=== PATIENT | female | born 1960 ===

== ENCOUNTER 2023-12-23 00:02 | Emergency (ER) | payer SELFPAY ==
[2023-12-23] MEDS ORDERED: NALOXONE HCL 2 MG/2 ML VIAL ONE (00:42)
[2023-12-23] MEDS ORDERED: NA CHLORIDE 0.9% 1,000 ML ONE (00:43)
[2023-12-23 00:52] LABS: Absolute Eosinophils 0.2 K/uL (0-0.5); Absolute Monocytes 0.5 K/uL (0.1-1.3); Absolute Neutrophil 3.9 K/uL (1.8-8.0); Basophils % 0.5 % (0-1.3); Eosinophils % 2.7 % (0-4.4); Hematocrit 35.6 % (36.0-45.0); Hemoglobin 11.9 g/dL (12.0-15.0); Lymphocytes % 30.6 % (15.3-44.8); MCH 29.6 pg (27.0-35.0); MCHC 33.5 g/dL (32.0-36.0); MCV 88.3 fL (80-100); MPV 9.4 fL (7.6-11.3); Monocytes % 7.1 % (3.3-12.3); Neutrophils % 59.1 % (41.7-73.7); Platelets 187 thou/uL (152-406); RBC Red Blood Cell Count 4.03 M/uL (3.86-4.86); Red Cell Distribution Width 13.7 % (12.1-15.2)
[2023-12-23 00:55] LABS: Specific Gravity < 1.005 (1.005-1.030); Sqamous Epithelial None Seen /HPF (None Seen); Urine Bacteria None Seen /HPF (<20); Urine Bilirubin NEGATIVE (Negative); Urine Blood Negative (Negative); Urine Clarity Clear (Clear); Urine Color Colorless (Yellow); Urine Culture Reflex Order NOT NEEDED; Urine Glucose NEGATIVE (Negative); Urine Ketones NEGATIVE (Negative); Urine Microscopic Reflex YN ORDER UMIC; Urine Nitrite NEGATIVE (Negative); Urine Protein NEGATIVE (Negative); Urine RBC <5 /HPF (None Seen); Urine Urobilinogen Normal (Normal); Urine WBC <5 /HPF (<5); Urine pH 6.5 (5.0-7.0)
[2023-12-23 01:01] LABS: Barbiturates NEGATIVE (NEGATIVE); Benzodiazepines NEGATIVE (NEGATIVE); Cocaine NEGATIVE (NEGATIVE); METHAMPHETAM NEGATIVE (NEGATIVE); Methadone NEGATIVE (NEGATIVE); Opiates NEGATIVE (NEGATIVE); Phencyclidine NEGATIVE (NEGATIVE); THC Cannibis NEGATIVE (NEGATIVE)
[2023-12-23 01:02] LABS: PT Prothrombin Time 10.6 SECONDS (9.4-12.5); PTT, Activated Partial Thromb 22.1 SECONDS (24.3-36.9); Protime INR 0.94
[2023-12-23 01:17] LABS: ALT/SGPT 22 U/L (13-56); AST/SGOT 17 U/L (15-37); Albumin 3.1 g/dL (3.4-5.0); Alkaline Phosphatase 72 U/L (45-117); Anion Gap 10.4 mEq/L (5.0-15.0); BUN Blood Urea Nitrogen 7 mg/dL (7-18); Bicarbonate 24 mEq/L (21-32); Bilirubin Total 0.2 mg/dL (0.2-1.0); Glomerular Filtration Rate 88 ml/min (=/>90); Glucose Level 147 mg/dL (74-106); Magnesium 2.2 mg/dL (1.6-2.4); Protein, Total 6.1 g/dL (6.4-8.2); Sodium Level 143 mEq/L (136-145)
[2023-12-23 01:18] LABS: Bilirubin Direct < 0.2 mg/dL (0-0.2)
[2023-12-23 01:20] LABS: Potassium 2.4 mEq/L (3.5-5.1)
[2023-12-23] MEDS ORDERED: POTASSIUM CL SA 10 MEQ TAB PO ONE (01:43)
[2023-12-23] MEDS ORDERED: KCL 20 MEQ/100 mL IVPB 100 ML IV ONE (01:43)
--- NOTE | 2023-12-23 02:30 | RAD REPORT ---
"EXAM: CT Chest, Abdomen and Pelvis Without Intravenous Contrast CLINICAL HISTORY: Fall, AMS. TECHNIQUE: Axial computed tomography images of the chest, abdomen and pelvis without intravenous contrast. Sag ittal and coronal reformatted images were created and reviewed. This CT exam was performed using one or more of the following dose reduction techniques: automated exposure control, adjustment of t he mA and/or kV according to patient size, and/or use of iterative reconstruction technique. COMPARISON: No relevant prior studies available. FINDINGS: CHEST: Lungs: Patchy bibasilar consolidative changes. No mass. Pleural space: Unremarkable. No significant effusion. No pneumothorax. Heart: The heart is mildly to moderately enlarged. No significant pericardial effusion. No sign ificant coronary artery calcifications. Mediastinum: Small hiatal hernia. ABDOMEN: Liver: Unremarkable. Gallbladder and bile ducts: There has been a cholecystectomy. No ductal dilation. Pancreas: Unremarkable. No ductal dilation. Spleen: Unremarkable. No splenomegaly. Adrenals: Unremarkable. No mass. Kidneys and ureters: Small left renal calculi. Mild fullness of the renal collecting systems bilate rally. Stomach and bowel: Unremarkable. No obstruction. No mucosal thickening. PELVIS: Appendix: Normal caliber appendix. No findings to suggest acute appendicitis. Bladder: The urinary bladder is distended. Small right lateral bladder diverticulum. No stones. Reproductive: There has been a hysterectomy. No adnexal cysts or masses are identified. CHEST, ABDOMEN and PELVIS: Intraperitoneal space: Unremarkable. No significant fluid collection. No free air. Bones/joints: Multilevel spondylosis. No acute fracture. No dislocation. Soft tissues: Unremarkable. Vasculature: Mild to moderate atherosclerotic disease. No thoracic or abdominal aortic aneurysm. Lymph nodes: Unremarkable. No enlarged lymph nodes. IMPRESSION: 1. Patchy bibasilar consolidative changes (atelectasis and/or infiltrate). 2. Allowing for unenhanced technique, no evidence for hollow or solid organ injury. 3. Other findings as above. Electronically signed by: Logan Fishman MD 12/23/2023 02:22 AM CDT Due to temporary technical issues with the PACS/[employer] An[employer] | Anywhere reporting system, reports are being rob d by the in-house radiologist without review as a courtesy to ensure prompt reporting the interpreting radiologist is fully responsible for the content of the report. Transcribed Date/Time: 12/23/2023 2:29 AM "
--- NOTE | 2023-12-23 02:55 | ER ---
Nurse's Notes [facility] Name: Anita Beck Age: 63 yrs Sex: Female : 1960 Arrival Date: 12/23/2023 Time: 00:02 Bed 25 Private MD: Diagnosis: Alcohol use, unspecified with intoxication;Hypokalemia Presentation: 12/21 23:48 Chief complaint: EMS states: patient was at [facility] with friends and had 8-9 al5 alcoholic drinks. friends that were with her state that she fell, with ems patient responsive to verbal/painful stimuli. Coronavirus screen: At this time, the client does not indicate any symptoms associated with coronavirus-19. Care prior to arrival: Cervical collar in place. Medication(s) given: Normal saline infusion, 500 mL, IV initiated. 20 GA, in the right hand. Ebola Screen: No symptoms or risks identified at this time. Mechanism of Injury: Fall. Trauma event details: Injury occurred in the [facility], Injury occurred: in a recreational area. Injury occurred: December 23, 2023. Initial Sepsis Screen: Does the patient meet any 2 criteria? No. Patient's initial sepsis screen is negative. Does the patient have a suspected source of infection? No. Patient's initial sepsis screen is negative. Risk Assessment: Do you want to hurt yourself or someone else? Unable to obtain. Onset of symptoms was December 23, 2023. 23:48 Acuity: KARO 3 al5 23:48 Method Of Arrival: EMS: [facility] al5 12/22 01:00 Risk Assessment: Do you want to hurt yourself or someone else? Patient reports no al5 desire to harm self or others. Triage Assessment: 00:29 General: see trauma assessment. al5 Trauma Activation: Physician: ED Physician; Name: ; Notified At: ; Arrived At: Physician: General Surgeon; Name: ; Notified At: ; Arrived At: Physician: Radiology; Name: ; Notified At: ; Arrived At: Physician: Respiratory; Name: ; Notified At: ; Arrived At: Physician: Lab; Name: ; Notified At: ; Arrived At: 12/21 23:48 no trauma activation al5 Historical: - Allergies: 12/22 00:51 No Known Allergies; al5 - PMHx: 00:51 None; al5 - PSHx: 00:51 None; al5 - Immunization history:: Adult Immunizations up to date. - Immunization history: Last tetanus immunization: unknown. - Infectious Disease History:: Denies. - Social history:: Smoking status: unknown. Screenin:28 Abuse screen: Denies threats or abuse. Denies injuries from another. Nutritional al5 screening: No deficits noted. Tuberculosis screening: No symptoms or risk factors identified. 00:29 [facility] ED Fall Risk Assessment (Adult) History of falling in the last 3 months, al5 including since admission Yes- single mechanical fall (1 pt) Confusion or Disorientation Yes (5 pts) Intoxicated or Sedated Yes (3 pts) Impaired Gait Yes (1 pt) Mobility Assist Device Used No (0 pt) Altered Elimination No (0 pt) Score/Fall Risk Level 3 or more points = High Risk Maintained a safe environment, Hourly rounding (assess needs \T\ fall precautionary measures) done, Apply high fall risk patient identification: yellow non skid footwear/ fall signage. Primary Survey: 12/21 23:48 NO uncontrolled hemorrhage observed. A: Airway: patent, A: No supplemental oxygen in al5 use on arrival. Breathing/Chest: Respiratory effort: spontaneous, Respiratory pattern: regular. Breathing/Chest: Chest inspection: symmetrical rise and fall of the chest. Circulation: Pulses: palpable right radial artery, right dorsalis pedis artery, left radial artery and left dorsalis pedis artery. Skin color: pink, Skin temperature: warm, dry. Disability Pupils are equal, round, reactive to light and accommodation. Client responds to verbal stimuli. Client reponds to painful stimuli. Exposure/Environment: All clothing and personal items were removed. There is no evidence of uncontrolled external bleeding. No obvious injuries are noted at this time. A warming method has been applied: A warm blanket has been provided to the patient. 12/22 00:45 Reassessment Alertness and Airway: Airway Patent Breathing: Spontaneous respiratory al5 effort, equal unlabored respirations, breath sounds clear bilaterally, regular pattern with symmetrical chest rise and fall. Respiratory effort Spontaneous Respiratory pattern Regular Circulation: Color [place] Temperature Warm Dry Disability: Pupils Pupils are equal, round, reactive to light and accomodation. Verbal stimuli. Secondary Survey: 00:24 HEENT: No deficits noted. Head No injury/deformity Face No injury/deformity Eyes: No al5 injury or deformity noted. Gastrointestinal: No deficits noted. Abdomen is soft, flat, non-distended. : No deficits noted. Musculoskeletal: No deficits noted. patient placed in c-collar by ems. Assessment: 12/21 23:48 General: Appears in no apparent distress. well groomed, Behavior is unresponsive. al5 Smells of alcohol. General: patient unable to stay awake to receive any kind of patient history. Pain: Unable to use pain scale. Patient is disoriented. Neuro: Level of Consciousness is unresponsive. EENT: No deficits noted. Cardiovascular: Capillary refill < 3 seconds Patient's skin is warm and dry. Respiratory: Airway is patent Respiratory effort is even, unlabored, Respiratory pattern is regular, symmetrical. GI: No deficits noted. Abdomen is flat, non-distended. : No deficits noted. Derm: Skin is intact, Skin is pink, warm \T\ dry. normal. Musculoskeletal: No deficits noted. 12/22 00:30 Reassessment: 261 dollars and patient ID found in patient R side back pocket, money al5 secured with security. 00:49 Reassessment: Patient states symptoms have improved. patient responsive to verbal al5 stimuli, able to answer questions. patient [id number].. 01:00 Reassessment: Patient appears in no apparent distress at this time. Patient and/or al5 family updated on plan of care and expected duration. Pain level reassessed. Patient is alert, oriented x 3, equal unlabored respirations, skin warm/dry/pink. Patient states feeling better. Patient states symptoms have improved. 01:58 Reassessment: Patient appears in no apparent distress at this time. No changes from al5 previously documented assessment. Patient and/or family updated on plan of care and expected duration. Pain level reassessed. Patient is alert, oriented x 3, equal unlabored respirations, skin warm/dry/pink. 02:54 Reassessment: Patient appears in no apparent distress at this time. No changes from al5 previously documented assessment. Patient and/or family updated on plan of care and expected duration. Pain level reassessed. Patient is alert, oriented x 3, equal unlabored respirations, skin warm/dry/pink. 03:18 Reassessment: Patient appears in no apparent distress at this time. No changes from al5 previously documented assessment. Patient and/or family updated on plan of care and expected duration. Pain level reassessed. Patient is alert, oriented x 3, equal unlabored respirations, skin warm/dry/pink. 03:18 Reassessment: discharge pending safe ride home. patient without phone, does not know al5 anyones phone numbers and patient has never been a patient at this facility therefore unable to look up any patient emergency contacts. charge nurse is aware. 03:20 Reassessment: DISCHARGE PENDING DUE TO TRANSPORTATION. UNABLE TO GET ANY PHONE ha1 NUMBER.TAXI UNAVAILABLE AT THIS TIME. 04:05 Reassessment: Patient and/or family updated on plan of care and expected duration. Pain ha1 level reassessed. Patient is alert, oriented x 3, equal unlabored respirations, skin warm/dry/pink. TAXI ARRANGEMENT MADE. TAXI WILL BE HERE IN 20 MINUTES. 04:05 General: Appears comfortable, Behavior is calm, cooperative. Neuro: Level of ha1 Consciousness is awake, alert, obeys commands, Oriented to person, place, time, situation. Cardiovascular: Capillary refill < 3 seconds Patient's skin is warm and dry. Vital Signs: 12/21 23:48 BP 103 / 65; Pulse 71; Resp 18; Temp 97.6; Pulse Ox 91% on R/A; Weight 66.22 kg; Height al5 5 ft. 3 in. ; 12/22 00:15 BP 111 / 65; Pulse 72; Resp 14; Pulse Ox 96% on 2 lpm NC; al5 00:30 BP 107 / 65; Pulse 67; Resp 15; Pulse Ox 96% on 2 lpm NC; al5 00:45 BP 109 / 67; Pulse 67; Resp 18; Pulse Ox 94% on R/A; al5 01:45 BP 119 / 73; Pulse 84; Resp 18; Pulse Ox 97% on R/A; al5 02:00 BP 117 / 68; Pulse 67; Resp 18; Pulse Ox 95% on R/A; al5 02:15 BP 109 / 65; Pulse 72; Resp 18; Pulse Ox 94% on R/A; al5 02:30 BP 100 / 63; Pulse 72; Resp 18; Pulse Ox 95% on R/A; al5 03:18 BP 105 / 63; Pulse 78; Resp 16; Pulse Ox 95% on R/A; al5 04:17 BP 107 / 67; Pulse 71; Resp 17 S; Pulse Ox 98% on R/A; ha1 12/21 23:48 Body Mass Index 25.86 (66.22 kg, 160.02 cm) al5 Tiaar Coma Score: 12/21 23:48 Eye Response: to voice(3). Motor Response: withdraws from pain(4). Verbal Response: al5 none(1). Total: 8. 12/22 00:50 Eye Response: to voice(3). Motor Response: obeys commands(6). Verbal Response: al5 oriented(5). Total: 14. 12/21 23:48 patient had etoh prior to arrival al5 Trauma Score (Adult): 23:48 Eye Response: to voice(0); Verbal Response: none(0); Motor Response: withdraws from al5 pain(1); Systolic BP: > 89 mm Hg(4); Respiratory Rate: 10 to 29 per min(4); Tiara Score: 8; Trauma Score: 9; patient had etoh prior to arrival 12/22 00:50 Eye Response: to voice(0); Verbal Response: oriented(1); Motor Response: obeys al5 commands(2); Systolic BP: > 89 mm Hg(4); Respiratory Rate: 10 to 29 per min(4); [place] Score: 14; Trauma Score: 11 ED Course: 12/21 23:48 Arm band placed on right wrist. Patient placed in the treatment room, on a stretcher. al5 12/22 00:11 Patient arrived in ED. ty 00:13 Niurka Cosme, SONALI is Primary Nurse. al5 00:15 Yogi Faulkner PA is PHCP. ec2 00:16 Damian Hurd MD is Attending Physician. ec2 00:17 Triage completed. al5 00:28 Patient has correct armband on for positive identification. Placed in gown. Bed in low al5 position. Call light in reach. Side rails up X2. 00:28 No provider procedures requiring assistance completed. Maintain EMS IV. Dressing al5 intact. Good blood return noted. Site clean \T\ dry. Gauge \T\ site: 20G R hand. Flushed with 10 mL NS. Patient maintains SpO2 saturation greater than 95% on room air. 00:31 Thermoregulation: warm blanket given to patient. al5 00:39 Acetaminophen Sent. al5 00:39 ETOH Level Sent. al5 00:39 Ptt, Activated Sent. al5 00:39 Salicylate Sent. al5 00:39 Urine Drug Screen Sent. al5 00:39 Urinalysis w/ reflexes Sent. al5 00:39 Basic Metabolic Panel Sent. al5 00:39 CBC with Diff Sent. al5 00:39 LFT's Sent. al5 00:39 Magnesium Sent. al5 00:39 PT-INR Sent. al5 00:39 Troponin HS Sent. al5 00:49 EKG done, by ED staff, reviewed by Yogi PAULA. sa1 00:54 Provided Education on: plan of care. al5 01:08 XRAY Chest (1 view) In Process Unspecified. EDMS 01:19 Head C Spine Mpr Wo Con In Process Unspecified. EDMS 01:19 Chest Abd Pelvis Wo Con In Process Unspecified. EDMS 01:47 Notified ED physician of a critical lab result(s). potassium 2.4. al5 03:20 IV discontinued, intact, bleeding controlled, No redness/swelling at site. Pressure al5 dressing applied. Administered Medications: 00:52 Drug: Naloxone IVP 1 mg IVP once Route: IVP; Site: right hand; al5 02:07 Follow up: Response: No adverse reaction al5 00:52 Drug: NS 0.9% IV 1000 ml IV at 500 ml/hr Per protocol Route: IV; Rate: 500 ml/hr; Site: al5 right hand; 03:19 Follow up: Response: No adverse reaction; IV Status: Completed infusion; IV Intake: al5 1000ml 01:57 Drug: Potassium Chloride IV 20 mEq IV at calculated rate once; administer over 1-2 al5 hours Route: IV; Rate: calculated rate; Site: right hand; 03:18 Follow up: Response: No adverse reaction; IV Status: Order to discontinue infusion al5 01:57 Drug: Potassium Chloride PO 40 mEq PO once Route: PO; al5 02:07 Follow up: Response: No adverse reaction al5 Medication: 00:29 VIS not applicable for this client. al5 Intake: 03:19 IV: 1000ml; Total: 1000ml. al5 00:25 n/a al5 Outcome: 02:54 Discharge ordered by . ec2 03:19 Patient's length of stay in the Emergency Department was greater than 2 hours. patient al5 receiving potassium IVPatient's length of stay extended due to 03:20 Condition: good al5 03:20 Discharge instructions given to patient, Instructed on discharge instructions, follow up and referral plans. Demonstrated understanding of instructions, follow-up care, 04:16 Discharged to home ambulatory, ha1 04:16 Condition: stable 04:16 Discharge instructions given to patient, Instructed on discharge instructions, follow up and referral plans. Demonstrated understanding of instructions, follow-up care, 04:17 Patient left the ED. ha1 Signatures: Dispatcher [employer] EDMS Selin Monteiro RN RN ha1 Damian Hurd MD MD ec2 Diogo Castañeda Amanda, RN RN al5 Sultan Go sa1 Corrections: (The following items were deleted from the chart) 00:52 00:48 NS 0.9% IV 1000 ml IV at 500 ml/hr in left hand al5 al5 00:54 00:25 GCS: 8, patient had etoh prior to arrival al5 al5 00:54 00:25 [place] Score=8, Trauma Score=9, patient had etoh prior to arrival al5 al5 00:54 00:25 BP 103 / 65; Pulse 71bpm; Resp 18bpm; Pulse Ox 91% RA; Temp 97.6F; 66.22 kg; al5 Height 5 ft. 3 in.; BMI: 25.8; al5 00:54 00:31 Arm band placed on right wrist. Patient placed in the treatment room, on a al5 stretcher, al5 : 00:17 General: Appears in no apparent distress. well groomed, Behavior is unresponsive. al5 Smells of alcohol, al5 :56 00:17 Pain: Unable to use pain scale. Patient is disoriented. al5 al5 :56 00:17 Neuro: Level of Consciousness is unresponsive, al5 al5 : 00:17 EENT: No deficits noted. al5 al5 00:56 00:17 Cardiovascular: Capillary refill < 3 seconds Patient's skin is warm and dry. al5 al5 00:56 00:17 Respiratory: Airway is patent Respiratory effort is even, unlabored, Respiratory al5 pattern is regular, symmetrical, al5 :56 00:17 : No deficits noted. al5 al5 :56 00:17 GI: No deficits noted. Abdomen is flat, non-distended, al5 al5 56 00:17 Derm: Skin is intact, Skin is pink, warm \T\ dry. normal, al5 al5 :56 00:17 Musculoskeletal: No deficits noted. al5 al5 :56 00:19 General: patient unable to stay awake to receive any kind of patient history. al5 al5 00:14 Chief complaint: EMS states: patient was at [facility] with friends and had 8-9 al5 alcoholic drinks. friends that were with her state that she fell, with ems patient responsive to verbal/painful stimuli. al5 00:14 Care prior to arrival: Cervical collar in place. Medication(s) given: Normal al5 saline infusion, 500 mL, IV initiated. 20 GA, in the right hand, al5 00:14 Mechanism of Injury: Fall al5 5 00:14 Trauma event details: Injury occurred in the [facility], Injury occurred: al5 in a recreational area. Injury occurred: December 23, 2023 al5 00:14 Acuity: KARO 2 al5 5 00:14 Method Of Arrival: EMS: [facility] al5 00:14 no trauma activation al5 00:30 Risk Assessment: Do you want to hurt yourself or someone else? Unable to obtain al5 al5 00:30 Coronavirus screen: At this time, the client does not indicate any symptoms al5 associated with coronavirus-19. al5 00:30 Ebola Screen: No symptoms or risks identified at this time. al5 5 00:30 Initial Sepsis Screen: Does the patient meet any 2 criteria? No. Patient's al5 initial sepsis screen is negative. Does the patient have a suspected source of infection? No. Patient's initial sepsis screen is negative. al5 00:30 Onset of symptoms was December 23, 2023 al5 al5 00:59 00:20 NO uncontrolled hemorrhage observed al5 al5 59 00:20 A: Airway: patent, al5 al5 00:59 00:20 A: No supplemental oxygen in use on arrival. al5 al5 00:59 00:20 Breathing/Chest: Respiratory effort: spontaneous, Respiratory pattern: regular, al5 al5 :59 00:20 Breathing/Chest: Chest inspection: symmetrical rise and fall of the chest, al5 al5 :59 00:20 Circulation: Pulses: palpable right radial artery, right dorsalis pedis artery, al5 left radial artery and left dorsalis pedis artery. Skin color: pink, Skin temperature: warm, dry, al5 00: 00:20 Disability Pupils are equal, round, reactive to light and accommodation. Client al5 responds to verbal stimuli. Client reponds to painful stimuli. al5 : 00:20 Exposure/Environment: All clothing and personal items were removed. There is no al5 evidence of uncontrolled external bleeding. No obvious injuries are noted at this time. A warming method has been applied: A warm blanket has been provided to the patient. al5
--- NOTE | 2023-12-23 02:56 | EDPHYS ---
Physician Documentation [facility] Name: Anita Beck Age: 63 yrs Sex: Female : 1960 Arrival Date: 12/23/2023 Time: 00:02 Bed 25 Private MD: ED Physician Damian Hurd HPI: 12/22 00:17 This 63 yrs old Female presents to ER via Unassigned with complaints of Fall Injury, cp ETOH Abuse. 00:17 The patient presents with decreased responsiveness. Onset: The symptoms/episode cp began/occurred today. Possible causes: reported fall after heavy drinking at local restaurant. Current symptoms: In the emergency department the patient's symptoms are unchanged from the initial presentation, despite EMS interventions. Historical: - Allergies: 00:51 No Known Allergies; al5 - PMHx: 00:51 None; al5 - PSHx: 00:51 None; al5 - Immunization history:: Adult Immunizations up to date. - Immunization history: Last tetanus immunization: unknown. - Infectious Disease History:: Denies. - Social history:: Smoking status: unknown. ROS: 00:20 Neuro: Positive for altered mental status, cp 02:55 Constitutional: as per hpi ec2 Exam: 00:25 Constitutional: The patient appears in no acute distress, non-diaphoretic, non-toxic, cp well developed, well nourished, 00:25 Head/Face: Normocephalic, atraumatic. cp 00:25 Eyes: Pupils: equal, round, and reactive to light and accomodation, Conjunctiva: normal, no exudate, no injection, 00:25 ENT: External ear(s): are unremarkable, Nose: is normal, Mouth: Lips: moist, Oral mucosa: moist, 00:25 Neck: C-spine: C-collar placed [employer], 00:25 Chest/axilla: Inspection: normal, Palpation: is normal, no crepitus, no tenderness, 00:25 Cardiovascular: Rate: normal, Rhythm: regular, 00:25 Respiratory: the patient does not display signs of respiratory distress, Respirations: normal, no use of accessory muscles, no retractions, labored breathing, is not present, Breath sounds: are clear throughout, no decreased breath sounds, no stridor, no wheezing, 00:25 Abdomen/GI: Inspection: abdomen appears normal, Palpation: abdomen is soft and non-tender, in all quadrants, 00:25 Musculoskeletal/extremity: Exam is negative for deformity, obvious injury. 00:25 Neuro: Mentation: responsive to pain, 00:47 ECG was reviewed by the Attending Physician. cp Vital Signs: 12/21 23:48 BP 103 / 65; Pulse 71; Resp 18; Temp 97.6; Pulse Ox 91% on R/A; Weight 66.22 kg; Height al5 5 ft. 3 in. ; 12/22 00:15 BP 111 / 65; Pulse 72; Resp 14; Pulse Ox 96% on 2 lpm NC; al5 00:30 BP 107 / 65; Pulse 67; Resp 15; Pulse Ox 96% on 2 lpm NC; al5 00:45 BP 109 / 67; Pulse 67; Resp 18; Pulse Ox 94% on R/A; al5 01:45 BP 119 / 73; Pulse 84; Resp 18; Pulse Ox 97% on R/A; al5 02:00 BP 117 / 68; Pulse 67; Resp 18; Pulse Ox 95% on R/A; al5 02:15 BP 109 / 65; Pulse 72; Resp 18; Pulse Ox 94% on R/A; al5 02:30 BP 100 / 63; Pulse 72; Resp 18; Pulse Ox 95% on R/A; al5 03:18 BP 105 / 63; Pulse 78; Resp 16; Pulse Ox 95% on R/A; al5 04:17 BP 107 / 67; Pulse 71; Resp 17 S; Pulse Ox 98% on R/A; ha1 12/21 23:48 Body Mass Index 25.86 (66.22 kg, 160.02 cm) al5 Tiara Coma Score: 12/21 23:48 Eye Response: to voice(3). Motor Response: withdraws from pain(4). Verbal Response: al5 none(1). Total: 8. 12/22 00:50 Eye Response: to voice(3). Motor Response: obeys commands(6). Verbal Response: al5 oriented(5). Total: 14. 12/21 23:48 patient had etoh prior to arrival al5 Trauma Score (Adult): 23:48 Eye Response: to voice(0); Verbal Response: none(0); Motor Response: withdraws from al5 pain(1); Systolic BP: > 89 mm Hg(4); Respiratory Rate: 10 to 29 per min(4); Tiara Score: 8; Trauma Score: 9; patient had etoh prior to arrival 12/22 00:50 Eye Response: to voice(0); Verbal Response: oriented(1); Motor Response: obeys al5 commands(2); Systolic BP: > 89 mm Hg(4); Respiratory Rate: 10 to 29 per min(4); Tiara Score: 14; Trauma Score: 11 MDM: 00:17 Patient medically screened. cp 01:19 Data reviewed: vital signs. ED course: Patient signed out to me with pending CT ec2 imaging. Patient will alcohol intoxication, altered. Patient pending clinical sobering and CT imaging.. 02:54 ED course: CT imaging with no acute traumatic process. On reassessment patient is awake ec2 and alert and ambulatory. Will discharge home. Return precautions given. 12/22 00:20 Order name: Basic Metabolic Panel; Complete Time: : cp 12/22 00:20 Order name: CBC with Diff; Complete Time: : cp 12/22 01:13 Interpretation: Normal except: HGB 11.9; HCT 35.6. cp 12/22 00:20 Order name: LFT's; Complete Time: : cp 12/22 00:20 Order name: Magnesium; Complete Time: : cp 12/22 00:20 Order name: PT-INR; Complete Time: : cp 12/22 00:20 Order name: Troponin HS; Complete Time: : cp 12/22 00:20 Order name: Acetaminophen; Complete Time: : cp 12/22 00:20 Order name: ETOH Level; Complete Time: 01:18 cp 12/22 00:20 Order name: Ptt, Activated; Complete Time: : cp 12/22 00:20 Order name: Salicylate; Complete Time: : cp 12/22 00:20 Order name: Urinalysis w/ reflexes; Complete Time: : cp 12/22 00:20 Order name: Urine Drug Screen; Complete Time: 01:13 cp 12/22 00:20 Order name: XRAY Chest (1 view) cp 12/22 00:45 Order name: Head C Spine Mpr Wo Con EDMS 12/22 00:45 Order name: Chest Abd Pelvis Wo Con EDMS 12/22 00:20 Order name: EKG; Complete Time: 00:20 cp 12/22 00:20 Order name: Cardiac monitoring; Complete Time: 00:32 cp 12/22 00:20 Order name: EKG - Nurse/Tech; Complete Time: 00:32 cp 12/22 00:20 Order name: IV Saline Lock; Complete Time: 00:32 cp 12/22 00:20 Order name: Labs collected and sent; Complete Time: 00:32 cp 12/22 00:20 Order name: O2 Per Protocol; Complete Time: 00:32 cp 12/22 00:20 Order name: O2 Sat Monitoring; Complete Time: 00:32 cp 12/22 00:20 Order name: Suicide Screening ([place]); Complete Time: 01:00 cp EC:47 Rate is 67 beats/min. Rhythm is regular. AR interval is normal. QRS interval is normal. cp QT interval is normal. T waves are Inverted in lead aVR. Interpreted by me. Reviewed by me. Administered Medications: 00:52 Drug: Naloxone IVP 1 mg IVP once Route: IVP; Site: right hand; al5 02:07 Follow up: Response: No adverse reaction al5 00:52 Drug: NS 0.9% IV 1000 ml IV at 500 ml/hr Per protocol Route: IV; Rate: 500 ml/hr; Site: [facility] right hand; 03:19 Follow up: Response: No adverse reaction; IV Status: Completed infusion; IV Intake: al5 1000ml 01:57 Drug: Potassium Chloride IV 20 mEq IV at calculated rate once; administer over 1-2 al5 hours Route: IV; Rate: calculated rate; Site: right hand; 03:18 Follow up: Response: No adverse reaction; IV Status: Order to discontinue infusion al5 01:57 Drug: Potassium Chloride PO 40 mEq PO once Route: PO; al5 02:07 Follow up: Response: No adverse reaction al5 Disposition: 02:54 I reviewed the patient's care provided by Advanced Practice Provider \T\ agree w/ the ec2 diagnosis \T\ care plan. I personally saw the pt \T\ performed a substantive portion of the visit, incldng all aspects of the (History/Exam/Medical Decision Making). Disposition Summary: 12/23/23 02:54 Discharge Ordered Notes: Location: Home ec2 Condition: Stable ec2 Diagnosis - Alcohol use, unspecified with intoxication ec2 - Hypokalemia ec2 Followup: ec2 - With: Private Physician - When: - Reason: Re-evaluation by your physician Discharge Instructions: - Discharge Summary Sheet ec2 - Potassium Content of Foods ec2 - Alcohol Intoxication, [id number] ec2 Forms: - Medication Reconciliation Form ec2 - Antibiotic Education ec2 - Prescription Opioid Use ec2 - Patient Portal Instructions ec2 - Leadership Thank You Letter ec2 Signatures: Dispatcher [employer] EDMS Yogi Faulkner PA PA cp Corral, Edwin, MD MD ec2 Niurka Cosme RN RN al5 Corrections: (The following items were deleted from the chart) 00:21 00:20 BASIC METABOLIC PANEL+C.LAB.BRZ ordered. EDMS EDMS 00:21 00:20 CBC+H.LAB.BRZ ordered. EDMS EDMS 00: 00:20 HEPATIC FUNCTION+C.LAB.BRZ ordered. EDMS EDMS 00: 00:20 MAGNESIUM+C.LAB.BRZ ordered. EDMS EDMS 00:21 00:20 PROTIME (+INR)+COAG.LAB.BRZ ordered. EDMS EDMS 00: 00:20 Troponin High Sensitivity+C.LAB.BRZ ordered. EDMS EDMS 00: 00:20 ACETAMINOPHEN+C.LAB.BRZ ordered. EDMS EDMS 00: 00:20 ETHANOL+C.LAB.BRZ ordered. EDMS EDMS 00: 00:20 PTT, ACTIVATED+COAG.LAB.BRZ ordered. EDMS EDMS 00: 00:20 SALICYLATE+C.LAB.BRZ ordered. EDMS EDMS 00:21 00:20 Urinalysis+U.LAB.BRZ ordered. EDMS EDMS 00:21 00:20 URINE DRUG SCREEN+UC.LAB.BRZ ordered. EDMS EDMS 00:44 00:20 Head C Spine Cap Wo Con+CT.RAD.BRZ ordered. EDMS EDMS
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
[2023-12-23 04:36] VITALS: BP 107/67; O2SAT 98
--- NOTE | 2023-12-24 11:56 | EKG ---
Test Date: 2023-12-23 Test Time: 00:39:15 Coding Director: MEASUREMENT RESULTS: Intervals: Rate: 67 KS: 182 QRSD: 96 QT: 432 QTc: 456 [place]: P: 75 KS: 182 QRS: 100 T: 65 INTERPRETIVE STATEMENTS: Normal sinus rhythm Normal ECG No previous ECG available for comparison Electronically Signed On 12-24-23 11:52:34 CDT by Félix Williamson
== END 2023-12-23 04:17 | disposition home or self-care (01) ==
LOC: ER 00:02
DX: F10.929 Alcohol use, unspecified with intoxication, unspecified (principal); E87.6 Hypokalemia; W18.30XA Fall on same level, unspecified, initial encounter
CPT/HCPCS: 36415; 70450; 71045; 71250; 72125; 74176; 80048; 80076; 80143; 80179; 80307; 81001; 82077; 83735; 84484; 85025; 85610; 85730; 93005; 96361; 96365; 96375; 99291; 99292; J2310; J3480; J7030